=== PATIENT | male | born 1965 | race Caucasian/White ===

== ENCOUNTER 2017-02-28 07:41 | Emergency (ER) | payer MEDICAID ==
[~2017-02-28] VITALS: Ht 177.8 cm; Wt 97.5 kg
--- NOTE | 2017-02-28 08:05 | NUR ---
Dr Rhodes at the bedside for eval and exam.
[2017-02-28] MEDS ORDERED: DIAZEPAM 2 MG TABLET PO ONE (08:15)
[2017-02-28] MEDS ORDERED: HYDROCODONE/APAP 5-325MG TABLET PO ONE (08:15)
--- NOTE | 2017-02-28 08:24 | NUR ---
Patient discharged to home in stable conditon. Written and verbal after care instructions given. Patient verbalizes understanding of instructions. pt left ER w/ steady gait.
[2017-02-28 08:25] VITALS: BP 155/110
[2017-02-28] MEDS ORDERED: HYDROCODONE/APAP 5-325MG TABLET ONE (08:27)
[2017-02-28] MEDS ORDERED: DIAZEPAM 5 MG TABLET ONE (08:27)
== END 2017-02-28 08:25 | disposition home or self-care (01) ==
LOC: ER 07:41
DX: M54.30 Sciatica, unspecified side (principal); I10 Essential (primary) hypertension; Z88.0 Allergy status to penicillin
CPT/HCPCS: A4663